=== PATIENT | male | born 1945 | race Caucasian/White ===

== ENCOUNTER 2018-05-15 11:10 | Observation (INO) ==
[2018-05-15] MEDS ORDERED: 0.9 % Sodium Chloride 1,000 ML IVC ONE ×2 (11:27→12:27)
--- NOTE | 2018-05-15 11:34 | Emergency Department Note ---
Disposition Clinical Impression: Near syncope, ESTEVAN (acute kidney injury), Abnormal EKG Disposition: Admitted As Inpatient Condition: Good Referrals: Roel Stanton MD [Primary Care Provider] - Forms: ED Satisfaction Letter General Adult HPI - General Chief complaint: ED Neuro Symptoms/Deficit Stated complaint: Heat exhaustion Time Seen by Provider: 05/15/18 11:19 Source: patient Limitations: no limitations Nursing Notes Reviewed: Yes Vital Signs Reviewed: Yes - History of Present Illness HPI Narrative: Patient presents today for concern for he exhaustion. 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 He said he became overheated. Family is at bedside and states that he came to the house and had a rather blank stare on his face. Trying to get more air conditioning. He states that he looked like he was over heating. Pain Scale: 0 - Related Data Home Medications Medication Instructions Recorded Confirmed Allopurinol [Zyloprim 100 MG] 100 mg PO DAILY 05/15/18 05/15/18 Atorvastatin [Lipitor] 40 mg PO HS 05/15/18 05/15/18 Cholecalciferol (D-3) [Vitamin D] 1,000 unit PO DAILY 05/15/18 05/15/18 Cider Vinegar [Apple Cider Vinegar] 300 mg PO DAILY 05/15/18 05/15/18 Esomeprazole Magnesium [Nexium] 40 mg PO DAILY 05/15/18 05/15/18 Indomethacin [Indomethacin] 50 mg PO BID 05/15/18 05/15/18 Lisinopril-HCTZ 10-12.5 [Prinzide 1 tab PO DAILY 05/15/18 05/15/18 10-12.5] Loratadine [Allergy Relief] 10 mg PO DAILY 05/15/18 05/15/18 Metoprolol [Lopressor] 25 mg PO BID 05/15/18 05/15/18 Psyllium Husk [Fiber] 0.52 gm PO DAILY 05/15/18 05/15/18 Allergies Allergy/AdvReac Type Severity Reaction Status Date / Time No Known Allergies Allergy Verified 05/15/18 13:03 Review of Systems: As Per HPI Constitutional: Reports: other (Diaphoresis). Denies: fever, chills Eyes: Reports: vision change ENT ED: Denies: dysphagia Cardiovascular: Denies: chest pain, palpitations Respiratory: Denies: cough, dyspnea Gastrointestinal: Denies: abdominal pain, nausea Integumentary: Denies: rash Neurological: Reports: other (Near-syncope) Past Medical History - Past Medical History Medical history: Reports: GERD, hyperlipidemia, hypertension, other Psychiatric history: Reports: no psych history - Social History Smoking Status: Never smoker Smokeless Tobacco Status: No Alcohol use: Reports: none Drug use: Reports: none Physical Exam General: Patient with no significant distress, mild diaphoresis to the skin Head: Normocephalic Atraumatic Eyes: PERRL, EOMI ENT: Airway patent, no stridor Neck: supple Chest: Lungs clear to auscultation bilateral Cardiac: Regular rate and rhythm, no murmurs, rubs or gallops Abdomen: soft, nontender, nondistended; no guarding, rebound, or tenderness to percussion Musculoskeletal: Calves symmetric, nontender, no palpable cord Skin: No rash, normal skin tone Neuro: Alert and Oriented to person, place, and time; No focal deficit, CN 2-12 symmetric and intact, - General Limitations: no limitations General appearance: alert, in no apparent distress Course - Reevaluation(s) Reevaluation #1: Patient with mild T-wave changes. Negative troponin. Elevated creatinine. Possible dehydration versus other near syncopal causes. Patient will be admitted to the hospitalist for further evaluation. - Consultations Consultation #1: Discussed with hospitalist. Patient accepted for admission. Vital Signs Pulse Rate 90 05/15/18 11:12 Respiratory Rate 16 05/15/18 11:12 Blood Pressure 91/62 05/15/18 11:12 O2 Sat by Pulse Oximetry 99 05/15/18 11:12 Temperature 97.4 F L 05/15/18 11:20 Pulse Rate 70 05/15/18 12:29 Respiratory Rate 12 05/15/18 12:29 Blood Pressure 121/52 05/15/18 12:29 O2 Sat by Pulse Oximetry 99 05/15/18 12:29 Oxygen Delivery Oxygen Delivery Nasal Cannula Medical Decision Making - Medical Records Medical records reviewed: Yes I reviewed the patient's medical records. - Lab Data Lab results reviewed: Yes I reviewed the patient's lab results. Result diagrams: 05/15/18 11:36 05/15/18 11:27 Lab Results 05/15/18 05/15/18 05/15/18 Range/Units 11:27 11:36 11:36 WBC 7.8 (4.3-11.1) K/mcL RBC 5.26 (4.19-5.50) M/mcL Hgb 16.4 (12.9-16.9) g/dL Hct 46.9 (37.5-50.1) % MCV 89.2 (83.0-100.0) fL MCH 31.2 (28.0-33.3) pg MCHC 35.0 (31.6-35.5) g/dL RDW 13.0 (11.5-14.5) % Plt Count 216 (140-400) K/mcL MPV 9.7 (9.4-12.4) fL Immature Gran % 0.5 (0-4) % Seg Neutrophils % 67.5 % Lymphocytes % 23.5 % Monocytes % 7.7 % Eosinophils % 0.5 % Basophils % 0.3 % Neutrophils # 5.3 (1.6-8.9) K/mcL Lymphocytes # 1.8 (0.6-4.6) K/mcL Monocytes # 0.6 (0.0-1.3) K/mcL Eosinophils # 0.0 (0.0-0.6) K/mcL Basophils # 0.0 (0.0-0.2) K/mcL Sodium 135 L (136-145) mEq/L Potassium 5.2 H (3.5-5.1) mEq/L Chloride 101 (98-107) mEq/L Carbon Dioxide 20 L (23-29) mEq/L BUN 43 H (8-23) mg/dL Creatinine 2.25 H (0.70-1.30) mg/dL Est GFR ( Amer) 35 L (> 60) Est GFR (Non-Af Amer) 29 L (> 60) BUN/Creatinine Ratio 19 (6-26) Glucose 160 H (70-105) mg/dL Calculated Osmolality 294 (280-300) Calcium 10.4 H (8.6-10.3) mg/dL Total Bilirubin 1.3 H (0.3-1.0) mg/dL AST 23 (13-39) Units/L ALT 22 (7-52) Units/L Alkaline Phosphatase 109 H (34-104) Units/L Troponin I < 0.03 (< 0.04) ng/mL Serum Total Protein 7.8 (6.4-8.9) g/dL Albumin 4.9 (3.5-5.7) g/dL Globulin 2.9 (2.4-3.5) g/dL Albumin/Globulin Ratio 1.7 (1.1-2.2) - Radiology Data Radiology results reviewed: Yes I reviewed the patient's radiology results. - EKG Data EKG #1 EKG attestation: Yes I reviewed and interpreted this EKG. EKG results narrative: EKG shows sinus rhythm with ventricular rate of 66. DE interval 155. QRS 95. QTC 412. Patient has no significant ST elevations or depressions. Patient does have T-wave changes to leads 1 and aVL. No previous EKG for comparison.
[2018-05-15 11:52] LABS: Basophils % 0.3 %; Eosinophils % 0.5 %; Hematocrit 46.9 % (37.5-50.1); Hemoglobin 16.4 g/dL (12.9-16.9); Immature Granulocytes % 0.5 % (0-4); Lymphocytes # 1.8 K/mcL (0.6-4.6); Lymphocytes % 23.5 %; Mean Corpuscular Hemoglobin 31.2 pg (28.0-33.3); Mean Corpuscular Volume 89.2 fL (83.0-100.0); Mean Platelet Volume 9.7 fL (9.4-12.4); Monocytes # 0.6 K/mcL (0.0-1.3); Monocytes % 7.7 %; Neutrophils # 5.3 K/mcL (1.6-8.9); Platelet Count 216 K/mcL (140-400); Red Blood Count 5.26 M/mcL (4.19-5.50); Segmented Neutrophils % 67.5 %
[2018-05-15 12:11] LABS: Albumin 4.9 g/dL (3.5-5.7); Albumin/Globulin Ratio 1.7 (1.1-2.2); Bilirubin,Total 1.3 mg/dL (0.3-1.0); Calcium 10.4 mg/dL (8.6-10.3); Globulin 2.9 g/dL (2.4-3.5); Potassium 5.2 mEq/L (3.5-5.1); Total Protein 7.8 g/dL (6.4-8.9)
--- NOTE | 2018-05-15 14:30 | Internal Med History&Physical ---
Date of Encounter: 05/15/18 Time of Encounter: 14:26 Internal Medicine - H&P: HPI Chief complaint: near syncope Admitted From: Emergency Dept Plans for Post Hospital Care: Home History of present illness: Mr. Noble is a 72 year old male patient with history of CAD, htn and gerd . 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 noted he looked , pale was staring but denies any chest pain patient brought to emergency room emergency room blood pressure was 90 systolic given some fluid last blood pressure was 121/52 patient denies any chest pain evaluation shows acute kidney injury creatinine 2.25 usually within normal range patient be admitted for near syncope, dehydration and acute kidney injury high. Past Med Surg Social Fam HX - Past Medical History Medical history: GERD, hyperlipidemia, hypertension, other Additional medical history: gout Psychiatric history: no psych history - Past Surgical History Additional surgical history: stent x1 - Social History Smoking Status: Never smoker Smokeless Tobacco Status: No Alcohol use: none Drug use: none Internal Medicine - H&P: Meds Allopurinol [Zyloprim 100 MG] 100 mg PO DAILY 05/15/18 [History] Atorvastatin [Lipitor] 40 mg PO HS 05/15/18 [History] Cholecalciferol (D-3) [Vitamin D] 1,000 unit PO DAILY 05/15/18 [History] Cider Vinegar [Apple Cider Vinegar] 300 mg PO DAILY 05/15/18 [History] Esomeprazole Magnesium [Nexium] 40 mg PO DAILY 05/15/18 [History] Indomethacin [Indomethacin] 50 mg PO BID 05/15/18 [History] Lisinopril-HCTZ 10-12.5 [Prinzide 10-12.5] 1 tab PO DAILY 05/15/18 [History] Loratadine [Allergy Relief] 10 mg PO DAILY 05/15/18 [History] Metoprolol [Lopressor] 25 mg PO BID 05/15/18 [History] Psyllium Husk [Fiber] 0.52 gm PO DAILY 05/15/18 [History] 3 Allergy/AdvReac Type Severity Reaction Status Date / Time No Known Allergies Allergy Verified 05/15/18 13:03 All Systems PM: A 10-system review of systems was performed and is negative for pertinent findings except as documented above in the HPI. - Constitutional Vitals: Temp Pulse Resp BP Pulse Ox 97.4 F L 66 16 112/64 96 05/15/18 11:20 05/15/18 13:24 05/15/18 13:24 05/15/18 13:24 05/15/18 13:24 - Head Head exam: Present: atraumatic, normocephalic - Eye Eye exam: Present: PERRL, conjuntiva pink, sclera anicteric Pupils: Present: PERRL - Neck Neck exam general surgery: Present: supple, trachea midline. Absent: lymphadenopathy - Respiratory Respiratory exam: Present: CTAB. Absent: accessory muscle use, rales, rhonchi, wheezes - Cardiovascular Cardiovascular exam: Present: RRR, +S1, +S2. Absent: diastolic murmur, gallop, rubs, systolic murmur - GI/Abdominal GI/Abdominal exam: Present: normal bowel sounds, soft, no peritoneal signs. Absent: distended, tenderness - Extremities Exam Extremities exam: Present: warm, radial pulses palpable and symmetrical. Absent : calf tenderness, cyanotic, pedal edema - Neurological Exam Neurological exam: Present: CN II-XII intact, oriented X3, no focal deficits. Absent: pronater drift, facial droop, speech deficit - Skin Skin exam: Present: dry, intact Internal Med - H&P Results - Labs CBC & Chem 7: 05/15/18 11:36 05/15/18 11:27 - Assessment and plan (1) Hypotension Current Visit: Yes Status: Acute Assessment and plan: Hypotension likely due to dehydration and may be overly control hypertension Qualifiers: Hypotension type: other hypotension type Qualified Code(s): I95.89 - Other hypotension (2) GERD (gastroesophageal reflux disease) Current Visit: Yes Status: Chronic Qualifiers: Esophagitis presence: without esophagitis Qualified Code(s): K21.9 - Gastro -esophageal reflux disease without esophagitis (3) Near syncope Current Visit: Yes Status: Acute Assessment and plan: Most likely due to hypotension secondary to dehydration (4) ESTEVAN (acute kidney injury) Current Visit: Yes Status: Acute Assessment and plan: Due to hypotensionhypovolemia (5) Abnormal EKG Current Visit: Yes Status: Acute Assessment and plan: Denies any chest pain with trend troponin - Time Spent With Patient Total time spent is greater than 50% in coordination of care (as documented) at patient's floor/unit and/or counseling patient:
[2018-05-15] MEDS ORDERED: Naloxone 0.4 MG/ML INJ IVP PRN (14:33)
[2018-05-15] MEDS ORDERED: Acetaminophen 325 MG TABLET PO PRN (14:33)
[2018-05-15] MEDS ORDERED: traMADol 50 MG TABLET PO PRN (14:33)
[2018-05-15] MEDS: 0.9 % Sodium Chloride 1,000 ML IVC SCH (15:29)
[2018-05-15 17:35] LABS: Bilirubin,Urine Negative (Negative); Blood,Urine Negative (Negative); Clarity,Urine Clear (Clear); Color,Urine Yellow (Yellow); Glucose,Urine (UA) Normal (Normal); Ketones,Urine Trace mg/dL (Negative); Leukocyte Esterase,Urine Negative (Negative); Nitrite,Urine Negative (Negative); PH,Urine 5.5 pH Units (5.0-8.0); Protein,Urine Trace mg/dL (Neg-Trace); Specific Gravity,Urine 1.013 (1.010-1.025); Urobilinogen,Urine Normal (Normal)
[2018-05-15 17:37] LABS: Bacteria,Urine None Seen per hpf (None-Few); Hyaline Casts,Urine Few per lpf (None-Few); Squamous Epithelial Cell,Urine Many per lpf (None-Few); WBC,Urine 0-3 per hpf (0-3)
--- NOTE | 2018-05-15 19:55 | Electrocardiograph Report ---
[place] [facility] Test Date: 2018-05-15 Pat Name: Nico Noble Department: [id number] Room: 2A14 Gender: M Correctional Supervisor: [facility] : 1945 Requested By: [id number] Order Number: [id number] Reading MD: Alexei Church Measurements Intervals [place] Rate: 66 P: 146 NV: 155 QRS: 171 QRSD: 95 T: 169 QT: 399 QTc: 412 Interpretive Statements SINUS RHYTHM WITH OCCASIONAL VENTRICULAR PREMATURE COMPLEXES ARM LEADS REVERSED INTERPRETATION BASED ON A DEFAULT AGE OF 40 YEARS Electronically Signed On 05-15-2018 19:54:11 EDT by Alexei Church
[2018-05-16] MEDS: 0.9 % Sodium Chloride 1,000 ML IVC SCH ×2 (02:00→12:05)
[2018-05-16 03:59] LABS: Mean Corpuscular HGB Conc 34.6 g/dL (31.6-35.5); Mean Corpuscular Hemoglobin 30.9 pg (28.0-33.3); Mean Corpuscular Volume 89.4 fL (83.0-100.0); Mean Platelet Volume 9.7 fL (9.4-12.4); Platelet Count 149 K/mcL (140-400); Red Blood Count 4.14 M/mcL (4.19-5.50); Red Cell Distribution Width 13.5 % (11.5-14.5)
[2018-05-16 04:03] LABS: Hemoglobin 12.8 g/dL (12.9-16.9)
[2018-05-16 04:24] LABS: Albumin 3.7 g/dL (3.5-5.7); Albumin/Globulin Ratio 1.7 (1.1-2.2); Bilirubin,Total 0.7 mg/dL (0.3-1.0); Calcium 8.6 mg/dL (8.6-10.3); Chol/HDL Ratio 3.6 (0-4.9); Globulin 2.2 g/dL (2.4-3.5); Magnesium 1.9 mg/dL (1.6-2.6); Total Protein 5.9 g/dL (6.4-8.9)
[2018-05-16] MEDS: Loratadine 10 MG TABLET PO SCH (07:41)
[2018-05-16] MEDS: Psyllium 1 PACKET POWD.PACK PO SCH (07:42)
[2018-05-16] MEDS: Cholecalciferol (D-3) 1,000 UNIT TABLET PO SCH (07:42)
[2018-05-16] MEDS ORDERED: CIDER VINEGAR 300 MG PO SCH (09:00)
[2018-05-16] MEDS ORDERED: PSYLLIUM HUSK 0.52 GM PO SCH (09:00)
--- NOTE | 2018-05-16 11:51 | Internal Med Progress Note ---
Hospitalist Progress Note - Encounter Date of Encounter: 05/16/18 Time of Encounter: 11:48 - Subjective Interval History: Patient seen and examined at bedside. Patient overnight events. Patient feels much better since admission with IV fluids. Denies any chest pain or shortness breath, nausea, vomiting, diarrhea. Spoke at length with patient and about recent events. Patient and recently can a extreme diet called Chirothin which is extremely low calorie diet with nutritional supplements. The patient lost 5 pounds in a couple days. I explained that I am not a mathematics instructor and cannot comment on specific diet but this is likely too much weight loss too quick and likely contributed to his kidney injury and dehydration. Patient state they understand. - Exam Vitals: Temp Pulse Resp BP Pulse Ox 97.7 F 62 19 128/76 97 05/16/18 11:20 05/16/18 11:20 05/16/18 11:20 05/16/18 11:20 05/16/18 11:20 Exam: Constitutional: No acute distress, Alert Psych: AAO x 3 HEENT: NCAT, EOMI Neck: supple, Cardio: regular rate and rhythm, +s1s2 Resp: clear to ascultation bilaterally, Abd: soft, non tender/non distended, positive bowel sounds, no flank tenderness Extremities: no clubbing/cyanosis/edema appreciated Neuro: no focal deficits appreciated - Assessment and Plan (1) ESTEVAN (acute kidney injury) Current Visit: Yes Status: Acute Assessment and Plan: Patient presented with acute kidney injury with hypovolemia and hypotension -Is likely secondary to severely decreased by mouth intake in conjunction with his lisinopril hydrochlorothiazide -Patient has received IV fluids and serum creatinine is improving from 2.25 to 1.45 -Continue IV fluids with normal saline at 75 mL per hour -Continue lisinopril hydrochlorothiazide -Increase by mouth intake and encourage by mouth hydration -Advised patient that he should likely not continue extreme dieting and should take a slower approach -Advised patient and that they may benefit from some seeing a mathematics instructor as an outpatient -We will check BMP tomorrow if kidney function improving will likely discharge (2) Hypotension Current Visit: Yes Status: Acute Assessment and Plan: Likely due hypovolemia and concurrent blood pressure medications -Resolved (3) Near syncope Current Visit: Yes Status: Acute Assessment and Plan: Likely secondary to hypovolemia and hypotension -Resolved -Continue to hold hydrochlorothiazide and lisinopril -Continue IV fluids (4) GERD (gastroesophageal reflux disease) Current Visit: Yes Status: Chronic Assessment and Plan: Continue home medication DVT Prophylaxis: Heparin subcutaneous - Time Spent with Patient Total time spent is greater than 50% in coordination of care (as documented) at patient's floor/unit and/or counseling patient: less than 15 minutes Plan of Care Discussed with: patient Internal Medicine: Result - Labs CBC & Chem 7: 05/16/18 03:28 05/16/18 03:28 Labs: Short CBC 05/16/18 Range/Units 03:28 WBC 6.0 (4.3-11.1) K/mcL Hgb 12.8 L D (12.9-16.9) g/dL Hct 37.0 L (37.5-50.1) % Plt Count 149 (140-400) K/mcL BMP 05/16/18 03:28 Sodium 135 L Potassium 4.0 Chloride 108 H Carbon Dioxide 20 L BUN 40 H Creatinine 1.45 H Glucose 85 Calcium 8.6 Cardiac Enzymes 05/15/18 05/15/18 05/16/18 Range/Units 14:47 20:12 03:28 Troponin I < 0.03 < 0.03 < 0.03 (< 0.04) ng/mL Liver Function 05/16/18 Range/Units 03:28 Total Bilirubin 0.7 (0.3-1.0) mg/dL AST 17 (13-39) Units/L ALT 16 (7-52) Units/L Alkaline Phosphatase 84 (34-104) Units/L Albumin 3.7 (3.5-5.7) g/dL Urine 05/15/18 Range/Units 17:20 Urine Color Yellow (Yellow) Urine Clarity Clear (Clear) Urine pH 5.5 (5.0-8.0) pH Units Ur Specific [place] 1.013 (1.010-1.025) Urine Protein Trace (Neg-Trace) mg/dL Urine Glucose (UA) Normal (Normal) mg/dL Consult Discharge Plan - Plan Referrals: Roel Stanton MD [Primary Care Provider] - (2) Hypotension Qualifiers: Hypotension type: other hypotension type Qualified Code(s): I95.89 - Other hypotension (4) GERD (gastroesophageal reflux disease) Qualifiers: Esophagitis presence: without esophagitis Qualified Code(s): K21.9 - Gastro- esophageal reflux disease without esophagitis
[2018-05-16] MEDS: *HR* Heparin 5,000 UNIT/ML VIAL SQ SCH (18:43)
[2018-05-17] MEDS: 0.9 % Sodium Chloride 1,000 ML IVC SCH (01:30)
[2018-05-17 05:22] LABS: BUN/Creatinine Ratio 23 (6-26); Blood Urea Nitrogen 26 mg/dL (8-23); Calcium 9.2 mg/dL (8.6-10.3); Carbon Dioxide 23 mEq/L (23-29); Chloride 110 mEq/L (98-107); Glucose 93 mg/dL (70-105); Osmolality,Calculated 292 (280-300); Potassium 4.3 mEq/L (3.5-5.1); Sodium 139 mEq/L (136-145); eGFR For Non-African Americans > 60 (> 60)
[2018-05-17] MEDS: *HR* Heparin 5,000 UNIT/ML VIAL SQ SCH (06:11)
[2018-05-17 07:29] VITALS: BP 138/73
--- NOTE | 2018-05-17 07:43 | Discharge Summary ---
- NOTES TO OUTPATIENT PROVIDER Notes to Outpatient Provider: She presented with acute renal failure and and hypovolemia and hypotension, presumably related to new rapid weight loss diet. Renal function improved to normal discharge creatinine is 1.12. Patient should have his kidney function checked within one week and outpatient follow-up, BMP order given to patient. Date of Encounter: 05/17/18 Time of Encounter: 07:40 - Discharge Diagnosis (1) ESTEVAN (acute kidney injury) Priority: Primary Status: Acute (2) Hypotension Priority: Secondary Status: Acute Qualifiers: Hypotension type: other hypotension type Qualified Code(s): I95.89 - Other hypotension (3) Near syncope Priority: Secondary Status: Acute (4) GERD (gastroesophageal reflux disease) Priority: Secondary Status: Chronic Qualifiers: Esophagitis presence: without esophagitis Qualified Code(s): K21.9 - Gastro -esophageal reflux disease without esophagitis Hospital course: Mr. Noble is a 72 year old male who presented to the hospital with chief complaint nausea and a flushing sensation. She did recently just begun a rapid weight loss diet and lost 5 pounds within a few days. Patient patient was diagnosed with acute renal failure with a serum creatinine on admission of 2.25 and an elevated potassium of 5.2 the patient was started on IV hydration and renal function improved to normal discharge creatinine is 1.12 hyperkalemia resolved with IV fluids. Patient also presented with hypotension and hypovolemia. Patient's blood pressure medications were held and blood pressure improved with IV fluids, hold metoprolol was restarted and patient tolerated well. Patient will be discharged with metoprolol but no lisinopril/ hydrochlorothiazide until outpatient follow-up with repeat renal function check , patient will be given an order for BMP to be checked in one week and follow- up with primary care physician; patient states he understands this. Patient was also instructed to avoid NSAIDs especially while on this diet and remain hydrated. I advised the patient that due to this acute event I would not recommend resuming this current diet and that he may benefit from speaking to a photo finish photographer for safer for weight loss alternatives. Patient was agreeable to discharge in stable for discharge on 05/13/2018. All questions answered. Discharge discussed with: patient, nurse - Time Spent with Patient Total time spent providing and/or coordinating discharge services: Greater than 30 minutes - Discharge Medications Home Medications: Allopurinol [Zyloprim 100 MG] 100 mg PO DAILY 05/15/18 [History] Atorvastatin [Lipitor] 40 mg PO HS 05/15/18 [History] Cholecalciferol (D-3) [Vitamin D] 1,000 unit PO DAILY 05/15/18 [History] Cider Vinegar [Apple Cider Vinegar] 300 mg PO DAILY 05/15/18 [History] Esomeprazole Magnesium [Nexium] 40 mg PO DAILY 05/15/18 [History] Loratadine [Allergy Relief] 10 mg PO DAILY 05/15/18 [History] Metoprolol [Lopressor] 25 mg PO BID 05/15/18 [History] Psyllium Husk [Fiber] 0.52 gm PO DAILY 05/15/18 [History] Allergies/Adverse Reactions: 3 Allergy/AdvReac Type Severity Reaction Status Date / Time No Known Allergies Allergy Verified 05/15/18 13:03 Date of admission: 05/15/18 13:30 Primary care physician: Roel Stanton MD - Constitutional Vitals: Temp Pulse Resp BP Pulse Ox 98.7 F 53 18 138/73 93 05/17/18 07:27 05/17/18 07:27 05/17/18 07:27 05/17/18 07:27 05/17/18 07:27 Exam: Constitutional: No acute distress, Alert, mucous membranes mosit Psych: AAO x 3 HEENT: NCAT, EOMI Cardio: regular rate and rhythm, +s1s2 Resp: clear to ascultation bilaterally Abd: soft, non tender/non distended, positive bowel sounds Extremities: no clubbing/cyanosis/edema appreciated Neuro: no focal deficits appreciated - Patient Status Disposition: Home, Self-Care Condition: Good Functional capacity at discharge: independent ambulation Overall status at discharge: patient is back to baseline - Discharge Instructions Follow Up With: Roel Stanton MD [Primary Care Provider] - - Diet and Activity Activity: increase activity as tolerated Diet: advance to your usual diet, other (Avoid rapid weight loss and maintain adequate hydration, consider seeing a photo finish photographer for safer weight loss alternatives)
[2018-05-17] MEDS: Loratadine 10 MG TABLET PO SCH (08:10)
[2018-05-17] MEDS: Cholecalciferol (D-3) 1,000 UNIT TABLET PO SCH (08:10)
[2018-05-17] MEDS: Psyllium 1 PACKET POWD.PACK PO SCH (08:11)
== END 2018-05-17 09:11 | disposition home or self-care (01) ==
LOC: 2ANU 11:10 → EMEROO 11:10 → 2ANU 14:08
PROVIDERS: ADMIT Internal Medicine Cardiovascular Disease; ATTEND Internal Medicine Cardiovascular Disease